=== PATIENT | female | born 1980 | race Caucasian/White ===

== ENCOUNTER 2017-04-13 20:10 | Outpatient (CLI) | payer BC ==
[2017-04-13] MEDS ORDERED: PROCHLORPERAZINE EDISYLATE INJ 10 MG/2 ML VIAL IV ONE (20:58)
[2017-04-13] MEDS ORDERED: PROCHLORPERAZINE MALEATE 10 MG TABLET ONE (21:04)
[2017-04-13] MEDS: RINGERS SOLUTION,LACTATED 1,000 ML IV PRN ×2 (21:11→22:24)
[2017-04-13 21:19] LABS: URINE BARBITURATES SCREEN NEGATIVE; URINE OPIATES LOW NEGATIVE; URINE PHENCYCLIDINE SCREEN NEGATIVE
[2017-04-13 21:21] LABS: URINE METHADONE SCREEN NEGATIVE
[2017-04-13 21:26] LABS: AMORPHOUS SEDIMENT,URINE TRACE /HPF; APPEARANCE,URINE SLIGHTLY-CLOUDY; BILIRUBIN,URINE NEGATIVE (NEGATIVE); GLUCOSE, URINE NEGATIVE (NEGATIVE); KETONES,URINE 80 mg/dL (NEGATIVE); LEUKOCYTE ESTERASE,URINE NEGATIVE (NEGATIVE); NITRITE,URINE NEGATIVE (NEGATIVE); PROTEIN,URINE NEGATIVE (NEGATIVE); URINE SPECIFIC GRAVITY 1.011; UROBILINOGEN,URINE NEGATIVE mg/dL (<2.0)
[2017-04-13] MEDS ORDERED: PROCHLORPERAZINE MALEATE 10 MG TABLET PO ONE (21:30)
[2017-04-13] MEDS ORDERED: ACETAMINOPHEN 325 MG TABLET PO ONE (22:18)
[2017-04-13] MEDS ORDERED: ACETAMINOPHEN 325 MG TABLET ONE (22:23)
== END 2017-04-13 23:51 | disposition home or self-care (01) ==
LOC: LC 20:10
PROVIDERS: ATTEND Obstetrics & Gynecology
PROC: 4A1HXCZ Monitoring of Products of Conception, Cardiac Rate, External Approach (ICD-10-PCS; principal; 2017-04-13)
DX: O09.522 Supervision of elderly multigravida, second trimester (principal); Z3A.24 24 weeks gestation of pregnancy
CPT/HCPCS: 59899; 81001; 80307; J0780; S0183

== ENCOUNTER 2017-07-25 23:29 | Inpatient (IN) | payer BC ==
[2017-07-26 00:11] LABS: ABSOLUTE BASOPHILS # (AUTO) 0.1 10^3/uL (0.0-0.2); ABSOLUTE MONOCYTES (AUTO) 0.7 10^3/uL (0.1-1.4); BASOPHILS % (AUTO) 0.6 % (0-2); EOSINOPHILS % (AUTO) 0.1 % (0-6); HEMATOCRIT 40.6 % (36.0-47.0); HEMOGLOBIN 13.6 g/dL (12.0-15.5); HGB HCT DIFFERENCE 0.2; LYMPHOCYTES % (AUTO) 6.2 % (13-45); MEAN CORPUSCULAR HEMOGLOBIN 31.2 pg (27.0-33.4); MEAN CORPUSCULAR HGB CONC 33.6 g/dL (32.0-36.0); MEAN CORPUSCULAR VOLUME 93 fl (80-97); RED BLOOD COUNT 4.37 10^6/uL (3.72-5.28); RED CELL DISTRIBUTION WIDTH 13.8 % (11.5-14.0); SEGMENTED NEUTROPHILS % (AUTO) 89.1 % (42-78); WHITE BLOOD COUNT 16.8 10^3/uL (4.0-10.5)
[2017-07-26 00:12] LABS: APPEARANCE,URINE SLIGHTLY-CLOUDY; BILIRUBIN,URINE NEGATIVE (NEGATIVE); GLUCOSE, URINE NEGATIVE (NEGATIVE); KETONES,URINE 80 mg/dL (NEGATIVE); LEUKOCYTE ESTERASE,URINE SMALL (NEGATIVE); NITRITE,URINE NEGATIVE (NEGATIVE); PROTEIN,URINE NEGATIVE (NEGATIVE); URINE SPECIFIC GRAVITY 1.023; UROBILINOGEN,URINE NEGATIVE mg/dL (<2.0)
[2017-07-26] MEDS ORDERED: LIDOCAINE 1% INJ-PF (10 MG/ML) 30 ML SDV ONE (00:16)
[2017-07-26] MEDS ORDERED: OXYTOCIN/NORMAL SALINE 20 UNIT/1,000 ML RTUINJ ONE ×2 (00:16→05:52)
[2017-07-26] MEDS ORDERED: MISOPROSTOL 0.2 MG TABLET ONE (00:16)
[2017-07-26] MEDS ORDERED: FENTANYL CITRATE INJ/PF 100 MCG/2 ML AMPUL ONE (00:52)
[2017-07-26] MEDS ORDERED: BUPIVACAINE HCL 0.25 % INJ/PF (2.5 MG/1 ML) 30 ML VIAL ONE (00:53)
[2017-07-26] MEDS ORDERED: EPHEDRINE SULFATE INJ 50 MG/1 ML AMPULE ONE (00:53)
[2017-07-26] MEDS ORDERED: FENTANYL/BUPIVACAINE/NS/PF 200 MCG/100 ML RTUINJ EPI ONE ×2 (00:53→09:29)
[2017-07-26] MEDS ORDERED: PHENYLEPHRINE HCL INJ/PF 10 MG/1 ML SDV ONE (00:53)
[2017-07-26] MEDS: RINGERS SOLUTION,LACTATED 1,000 ML IV PRN ×3 (01:27→12:05)
[2017-07-26 02:05] LABS: URINE BARBITURATES SCREEN NEGATIVE; URINE METHADONE SCREEN NEGATIVE; URINE OPIATES LOW NEGATIVE; URINE PHENCYCLIDINE SCREEN NEGATIVE
[2017-07-26] MEDS ORDERED: CITRIC ACID/SODIUM CITRATE ORAL SOLN 15 ML UDCUP ONE (06:13)
[2017-07-26] MEDS ORDERED: MISOPROSTOL 0.2 MG TABLET PR PRN (08:12)
[2017-07-26] MEDS ORDERED: OXYTOCIN/NORMAL SALINE 20 UNIT/1,000 ML RTUINJ IV PRN ×2 (08:12→14:03)
[2017-07-26] MEDS ORDERED: LIDOCAINE 1% INJ-PF (10 MG/ML) 30 ML SDV INJ PRN (08:12)
[2017-07-26] MEDS ORDERED: FAMOTIDINE 20 MG TABLET PO ONE (09:11)
[2017-07-26] MEDS ORDERED: ONDANSETRON HCL INJ/PF 4 MG/2 ML SDV IV PRN (09:11)
[2017-07-26] MEDS ORDERED: ONDANSETRON HCL INJ/PF 4 MG/2 ML SDV ONE (09:23)
[2017-07-26] MEDS ORDERED: FAMOTIDINE 20 MG TABLET ONE (09:23)
--- NOTE | 2017-07-26 11:01 | L&D Progress Notes ---
PROGRESS NOTES Datetime Report Generated by CPN: 07/26/2017 11:01 PROGRESS NOTE Impression: Normal Progression of Labor Procedures: Sterile Vag Exam Plan: Augmentation Informed Consent Obtained: Vaginal Delivery; Risks, Benefits and Alternatives Discussed Vital Signs : Reviewed; Within Normal Limits Comment: here for Labor. Arrived at 6cm with minimal change until most recent cervical exam. now 9/c/1 and making adequate change. Will continue with position change. Anticipate . Doing well. Variable decel with cervical exam. recovered spontaneously. VAGINAL EXAM Dilatation: 6 Effacement: 70 Station: -1 Contractions: q 2-4 MEMBRANES Membranes: Intact Amniotic Fluid Color: Meconium, Light FETUS A FHR - Baseline: 120 Accelerations: 15X15 Decelerations: Variable FHR Category: Category I : 38.5 Presentation: Vertex SIGNATURE SIGNATURE: [id number] Signature: with User ID: [email or web address]
[2017-07-26] MEDS ORDERED: PROMETHAZINE HCL 25 MG TABLET PO PRN (14:03)
[2017-07-26] MEDS ORDERED: ACETAMINOPHEN 650 MG SUPP.RECT PR PRN (14:03)
[2017-07-26] MEDS ORDERED: MAGNESIUM HYDROXIDE SUSP 30 ML UDCUP PO PRN (14:03)
[2017-07-26] MEDS ORDERED: DIPH/PERTUSS(ACELL)/TETANUS VAC/PF 0.5 ML SYR (>=10YO) IM PRN (14:03)
[2017-07-26] MEDS ORDERED: PSEUDOEPHEDRINE HCL 30 MG TABLET PO PRN (14:03)
[2017-07-26] MEDS ORDERED: ZOLPIDEM TARTRATE 5 MG TABLET PO PRN (14:03)
[2017-07-26] MEDS ORDERED: PROMETHAZINE HCL INJ 25 MG/1 ML VIAL IV PRN (14:03)
[2017-07-26] MEDS ORDERED: DIBUCAINE 1% OINTMENT 28 GM TP PRN (14:03)
[2017-07-26] MEDS ORDERED: NA PHOS,M-B/NA PHOS,DI-BA (ADULT) 133 ML ENEMA PR PRN (14:03)
[2017-07-26] MEDS ORDERED: GLYCERIN/WITCH HAZEL LEAF 1 EACH MED..PAD TP PRN (14:03)
[2017-07-26] MEDS ORDERED: BENZOCAINE/MENTHOL AEROSOL SPRAY 56 ML TOP PRN (14:03)
[2017-07-26] MEDS ORDERED: DIPHENHYDRAMINE HCL 25 MG CAPSULE PO PRN (14:03)
[2017-07-26] MEDS ORDERED: MEASLES,MUMPS&RUBELLA VACC/PF 0.5 ML VIAL SUBCUT PRN (14:03)
[2017-07-26] MEDS ORDERED: ACETAMINOPHEN WITH CODEINE #3 TABLET PO PRN ×2 (14:03)
[2017-07-26] MEDS ORDERED: PROMETHAZINE HCL 25 MG SUPP.RECT PR PRN (14:03)
--- NOTE | 2017-07-26 14:37 | Delivery Summary ---
Del Sum A-C Datetime Report Generated by CPN: 07/26/2017 14:37 DELIVERY PERSONNEL DELIVERY PERSONNEL: [id number] Delivery Doctor:: Jenna Wang MD Labor and Delivery Nurse:: Anahi Franco RNsinging teacher Nurse:: Renee Franklin RN Student Observers:: BRenny Mershon, MSIII Entry Level Sales Associate/PROCUREMENT ANALYST: Jenae Pena, NUCLEAR FUELS RECLAMATION ENGINEER MATERNAL INFORMATION Delivery Anesthesia: Epidural Medications After Delivery: Pitocin Bolus-Please Comment Maternal Complications: None Provider Comments: VMI delivered in Direct OA presentation. Shoulder and body cord reduced at delivery. Shoulders and body delivered without difficulty. Cord clamped and cut and to abdomen without difficulty. Placenta delivered intact spontaneously. FF at U. 1st degree perineal laceration repaired in usual fashion. Apgars 7/9. Weight pending. Uterine exploration negative for retianed products. Mother and baby stable upon provider leaving the room. LABOR SUMMARY EDC: 08/03/2017 00:00 No. Babies in Womb: 1 Attempted: No Labor Anesthesia: Epidural LABOR INFORMATION Reason for Induction: Not Applicable Complete Dilatation: 07/26/2017 12:33 Oxytocin: Augmentation Group B Beta Strep: negative Antibiotics # of Doses: 0 MEMBRANES Membranes Rupture Method: Artificial Rupture of Membranes: 07/26/2017 03:34 Length of Rupture (hr): 9.78 Amniotic Fluid Color: Clear Amniotic Fluid Amount: Large Amniotic Fluid Odor: Normal STAGES OF LABOR Stage 2 hr: 0 Stage 2 min: 48 Stage 3 hr: 0 Stage 3 min: 8 VAGINAL DELIVERY Episiotomy: None Laceration Extension: First Degree Laceration Type: Perineal Laceration Repair: Yes Laceration Repair Note: 1st degree perineal laceration repaired in usual fashion Sponge Count Correct: Yes Sharps Count Correct: Yes CSECTION DELIVERY Primary Indication: N/A Secondary Indication: N/A CSection Urgency: N/A CSection Incidence: N/A Labor: N/A Elective: N/A CSection Incision: N/A BABY A INFORMATION Infant Delivery Date/Time: 07/26/2017 13:21 Method of Delivery: Vaginal Born in Route : No : N/A Forceps: N/A Vacuum Extraction: N/A Shoulder Dystocia : No PRESENTATION/POSITION BABY A Presentation: Cephalic Cephalic Presentation: Vertex Vertex Position: Right Occipital Anterior Breech Presentation: N/A PLACENTA INFORMATION BABY A Placenta Delivery Time : 07/26/2017 13:29 Placenta Method of Delivery: Spontaneous Placenta Status: Delivered SCORES BABY A Heart Rate 1 min: >100 bpm Resp Effort 1 min: Good Cry Reflex Irritability 1 min: Cough or Sneeze or Pulls Away Muscle Tone 1 min: Some Flexion of Extremities Color 1 min: Blue/Pale Resuscitation Effort 1 min: Tactile Stimulation SCORE 1 MIN: 7 Heart Rate 5 min: >100 bpm Resp Effort 5 min: Good Cry Reflex Irritability 5 min: Cough or Sneeze or Pulls Away Muscle Tone 5 min: Active Motion Color 5 min: Body Cowan, Extremities Blue Resuscitation Effort 5 min: Tactile Stimulation SCORE 5 MIN: 9 INFORMATION BABY A Gestational Age at Delivery: 38.6 Gestational Status: Early Term- 37- 38.6 Weeks Outcome : Liveborn Condition : Stable Infant Sex: Male IDENTIFICATION BABY A Verification Date/Time: 07/26/2017 13:57 ID Band Number: [id number] Mother's Name Verified: Yes Infant RN Verifying Infant: ARenny Franco RN Additional Verifying Personnel: Nate Mercado NUCLEAR FUELS RECLAMATION ENGINEER WEIGHT/LENGTH BABY A Birthweight (gm): 3884 Weight (lb): 8 Weight (oz): 9 Infant Length (in): 21.75 Length (cm): 55.25 CORD INFORMATION BABY A No. Cord Vessels: 3 Nuchal Cord : N/A Cord Blood Taken: Yes-For Storage (Mom's Blood type +) Infant Suction: Mouth; Nose ASSESSMENT BABY A Infant Complications: Decreased Variability; Multiple Late Decels Physical Findings at Delivery: Within Normal Limits; Molding of the Head Respirations: Grunting Skin to Skin: Yes Skin to Skin Time (min): 8 Warp Drawer/ALS Called : No Infant Care By: Oliver Prince RN Transferred To: Nursery BABY B INFORMATION : N/A
--- NOTE | 2017-07-26 15:57 | Admission Physical ---
Datetime Report Generated by CPN: 07/26/2017 15:57 ALLERGIES Medication Allergies: No Medication Allergies: No Known Allergies (07/25/2017) Medication Allergies: No Known Allergies (04/13/2017) Medication Allergies: No Known Allergies (11/17/2012) Latex: No Latex Allergies OBSTETRICAL HISTORY EDC: 08/03/2017 00:00 : 3 Para: 1 Term: 1 SAB: 1 Livin Gestational Diabetes: No Rh Sensitization: No Incompetent Cervix: No PILAR: No Infertility: No ART Treatment: No Uterine Anomaly: No IUGR: No Hx Previous C/S: No Macrosomia: No Hx Loss/Stillborn: No PIH: No Hx : No Placenta Previa/Abruption: No Depression/PP Depression: No PTL/PROM: No Post Hemorrhage: No Obstetrical History Comments: G1:2012: 39.4 babyboy G2: 2015: 8 weeks SAB G3: current SEE RECORDS Alcohol: No Marijuana : No Cocaine: No Other Illicit Drugs: No Cigarettes: Never Smoker. [id number] MEDICAL HISTORY Diabetes: No Blood Transfusion: No Pulmonary Disease (Asthma, TB): No Breast Disease: No Hypertension: No Union Laborer Surgery: Yes Heart Disease: No Hosp/Surgery: Yes Autoimmune Disorder: No Anesthetic Complications: No Kidney Disease: No Abnormal Pap Smear: Yes Neuro/Epilepsy: No Psychiatric Disorders: No Other Medical Diseases: No Hepatitis/Liver Disease: No Significant Family History: No Varicosities/Phlebitis: No Trauma/Violence : No Thyroid Dysfunction: No Medical History Comments: D_C, abd pap 2017 [facility] INFECTIOUS HISTORY Gonorrhea: No Genital Herpes: No Chlamydia: No Tuberculosis: No Syphilis: No Hepatitis: No HIV/AIDS Exposure: No Rash or Viral Illness: No HPV: No PHYSICAL EXAM General: Normal HEENT: Normal Neurologic: Normal Thyroid: Deferred Heart: Normal Lungs: Normal Breast: Deferred Back: Normal Abdomen: Normal Genitourinary Exam: Normal Extremities: Normal DTRs: Normal Pelvic Type: Adequate Vital Signs: Reviewed; Within Normal Limits VAGINAL EXAM Dilatation: 6 Effacement: 70 Station: -1 Contraction Comments: q 2-4 MEMBRANES Membranes: Intact Amniotic Fluid Color: Meconium, Light FETUS A Monitoring: External US FHR- Baseline: 140 Variability: Moderate 6-25bpm Accelerations: 15X15 Decelerations: None FHR Category: Category I Presentation: Vertex PLANS FOR LABOR AND DELIVERY Labor and Delivery: None Pain Management: Epidural Feeding Preference: Breast Benefit of Breast Feed Discussed: Yes Circumcision: Yes INFORMED CONSENT Informed Consent Obtained: Vaginal Delivery; Risks, Benefits and Alternatives Discussed Signature: with User ID: [email or web address]
[2017-07-26] MEDS: FERROUS SULFATE 325 MG TABLET PO SCH (17:05)
[2017-07-26] MEDS: DOCUSATE SODIUM 100 MG CAPSULE PO SCH (17:05)
[2017-07-26] MEDS: FAMOTIDINE 20 MG TABLET PO SCH (21:09)
[2017-07-26] MEDS: IBUPROFEN 800 MG TABLET PO SCH (21:09)
[2017-07-27] MEDS: IBUPROFEN 800 MG TABLET PO SCH ×3 (05:42→22:02)
[2017-07-27 08:24] LABS: HEMATOCRIT 35.1 % (36.0-47.0); HGB HCT DIFFERENCE 0.9; MEAN CORPUSCULAR HEMOGLOBIN 31.5 pg (27.0-33.4); MEAN CORPUSCULAR HGB CONC 34.1 g/dL (32.0-36.0); MEAN CORPUSCULAR VOLUME 92 fl (80-97); RED BLOOD COUNT 3.81 10^6/uL (3.72-5.28); RED CELL DISTRIBUTION WIDTH 14.4 % (11.5-14.0); WHITE BLOOD COUNT 16.6 10^3/uL (4.0-10.5)
--- NOTE | 2017-07-27 09:17 | PDOC PROGRESS REPORT ---
Subjective-OB Subjective: Post Delivery Day: 1 35 year old. Denies any needs at this time, lochia is stable, pain well controlled, voiding without difficulty. Physical Exam (OB) Vital Signs: Temp Pulse Resp BP Pulse Ox 97.8 F 80 16 98/64 L 100 07/27/17 07:24 07/27/17 07:24 07/27/17 07:24 07/27/17 07:24 07/27/17 07:24 Intake & Output 07/26/17 07/27/17 07/28/17 06:59 06:59 06:59 Weight 81.6 kg - Lochia Lochia Amount: Scant < 10 ml Lochia Color: Rubra/Red - Abdomen Description: Tender, Soft, Round Hernia Present: No Fundal Description: Firm, Midline Fundal Height: u/u - u/2 Objective-Diagnostic Laboratory: 07/27/17 07:27 07/27/17 07:27 WBC 16.6 H RBC 3.81 Hgb 12.0 Hct 35.1 L MCV 92 MCH 31.5 MCHC 34.1 RDW 14.4 H Plt Count 163 Assessment and Plan(PN) - Assessment and Plan (1) Vaginal delivery Is this a current diagnosis for this admission?: Yes Plan: routine pp care - Time Spent with Patient Time with patient: Less than 15 minutes Critical Time spent with patient: Less than 15 minutes Medications reviewed and adjusted accordingly: Yes - Disposition Anticipated Discharge: Home Within: within 24 hours
[2017-07-27] MEDS: DOCUSATE SODIUM 100 MG CAPSULE PO SCH ×2 (09:19→17:07)
[2017-07-27] MEDS: FERROUS SULFATE 325 MG TABLET PO SCH ×2 (09:19→17:07)
[2017-07-27] MEDS: SENNOSIDES/DOCUSATE 8.6-50 MG 1 EACH TABLET PO SCH (09:20)
[2017-07-27] MEDS: PRENATAL VITAMIN W-O CA NO5/FE FUMARATE/FA CAPSULE PO SCH (09:20)
[2017-07-27] MEDS: FAMOTIDINE 20 MG TABLET PO SCH ×2 (09:22→22:06)
[2017-07-28] MEDS: IBUPROFEN 800 MG TABLET PO SCH ×2 (05:41→13:10)
[2017-07-28 08:08] VITALS: BP 121/74
[2017-07-28] MEDS: PRENATAL VITAMIN W-O CA NO5/FE FUMARATE/FA CAPSULE PO SCH (08:55)
[2017-07-28] MEDS: FERROUS SULFATE 325 MG TABLET PO SCH (08:56)
[2017-07-28] MEDS: SENNOSIDES/DOCUSATE 8.6-50 MG 1 EACH TABLET PO SCH (08:56)
[2017-07-28] MEDS: DOCUSATE SODIUM 100 MG CAPSULE PO SCH (08:56)
[2017-07-28] MEDS: FAMOTIDINE 20 MG TABLET PO SCH (08:57)
--- NOTE | 2017-07-28 09:22 | PDOC DISCHARGE SUMMARY ---
Final Diagnosis Discharge Date: 07/28/17 - Final Diagnosis (1) Vaginal delivery Is this a current diagnosis for this admission?: Yes Discharge Data - Discharge Medication Home Medications: Pnv W-O Ca No5/Fe Fumarate/FA [-U Multiple Vitamin Capsule] 1 tab PO DAILY 11/17/12 Calcium Carbonate [Tums] 1 tab PO Q8 PRN 07/25/17 Docusate Sodium [Colace 100 mg Capsule] 100 mg PO BID #60 capsule 07/28/17 Ibuprofen [Motrin 800 mg Tablet] 800 mg PO Q8 #60 tablet 07/28/17 Gestational Age: 338.6 Reason(s) for Admission: Onset of Labor, Group B Strep Positive Procedures: NST Intrapartum Procedure(s): Spontaneous Vaginal Delivery Complication(s): Laceration-Vaginal Laceration-Degree: 1st - Data Baby 1 Male at 1 minute: 7 at 5 minutes: 9 Weight: 3884 kg Home with Mother: Yes Complications: No - Diagnosis Test Laboratory: Temp Pulse Resp BP Pulse Ox 98.6 F 79 15 121/74 99 07/28/17 08:55 07/28/17 08:55 07/28/17 08:55 07/28/17 07:26 07/28/17 08:55 07/25/17 07/26/17 07/27/17 23:43 00:01 07:27 RBC 4.37 3.81 Hgb 13.6 12.0 Hct 40.6 35.1 L Urine Opiates Screen NEGATIVE - Discharge information/Instructions Discharge Activity: Activity As Tolerated, Pelvic Rest, No tub bath Discharge Diet: Regular Disposition: HOME, SELF-CARE Follow up with: [facility] in: 4, Weeks
== END 2017-07-28 13:24 | disposition home or self-care (01) | DRG 775 ==
LOC: LC 23:29 → LR 23:53 → 2S 07-26 15:42
PROVIDERS: ADMIT Obstetrics & Gynecology; ATTEND Obstetrics & Gynecology
PROC: 10E0XZZ Delivery of Products of Conception, External Approach (ICD-10-PCS; principal; 2017-07-26)
PROC: 0HQ9XZZ Repair Perineum Skin, External Approach (ICD-10-PCS; 2017-07-26)
DX: O69.2XX0 Labor and delivery complicated by other cord entanglement, with compression, not applicable or unspecified (principal); O70.0 First degree perineal laceration during delivery; O76 Abnormality in fetal heart rate and rhythm complicating labor and delivery; Z3A.38 38 weeks gestation of pregnancy; Z37.0 Single live birth
CPT/HCPCS: 36415; 59025; 80307; 81005; 85025; 85027; 86592; 86850; 86900; 86901; 94760; J2370; J2405; J2590; J3010; J3490